=== PATIENT | female | born 1980 | race Two or more races ===

== ENCOUNTER 2025-02-10 17:39 | Emergency (ER) | payer OTHER ==
[~2025-02-10] VITALS: Ht 165.1 cm; Wt 68.0 kg
[2025-02-10 17:41] VITALS: BP 117/75; PULSE 68; RESP 20; TEMP 97.8; O2SAT 97
[2025-02-10] MEDS ORDERED: DOXY100C4 PO (18:37)
[2025-02-10] MEDS ORDERED: IBUP-1456 PO (18:39)
--- NOTE | 2025-02-10 18:39 | ED.PDOC ---
History of Present Illness(SKN HPI Comments 44-year-old female presents to the ED chief complaint sting raise sting to left ankle eight days ago. Patient complaining of increasing redness, swelling, and itchiness. Reports no other related symptoms denies fever chills nausea vomiting diarrhea chest pain, shortness of breath, difficulty breathing, a bdominal pain, or recent travel. Chief Complaint: Animal Bite Time Seen by MD: 18:02 History of Present Illness: Nurses Notes, Medications, Allergies Allergies: Coded Allergies: Sulfamethoxazole w/Trimethoprim (Verified Allergy, Unknown, 02/10/25) Home Meds Active Scripts Ibuprofen (Ibuprofen) 800 Mg Tab, 800 MG PO Q8HP PRN for 7 Days, #21 TAB Prov:GAELJU CRUSHER LOADER OPERATOR 02/10/25 Doxycycline Hyclate (Doxycycline Hyclate) 100 Mg Cap, 100 MG PO BID for 10 Days, #20 CAP Prov:GAELJU CRUSHER LOADER OPERATOR 02/10/25 Information Source: Patient Mode of Arrival: Ambulatory Past Medical History PAST MEDICAL HISTORY: Denies Surgical History: Denies all surgeries VASCULAR ULTRASOUND TECHNOLOGIST History: No Pertinent VASCULAR ULTRASOUND TECHNOLOGIST History Family History Family History: Reviewed,noncontributory to illness Social History Smoker: Non-Smoker Alcohol: Denies ETOH Use Drugs: Denies Drug Use All Other Systems: Reviewed and Negative (see hpi) Physical Exam General Appearance: No Apparent Distress, Normal HEENT: Pharynx Normal Neck: Full Range of Motion, Non-Tender Respiratory: Lungs Clear, No Respiratory Distress, Normal Breath Sounds Cardiovascular: No Murmur, Normal Peripheral Pulses, Regular Rate/Rhythm Breast Exam: Deferred Gastrointestinal: Non Tender, Soft Genitalia: Deferred Pelvic: Deferred Rectal: Deferred Extremities: Normal capillary refill, Normal range of motion, No pedal edema Musculoskeletal : Apperance: Normal Neurologic: Alert, No Motor Deficits, Normal Affect, Normal Mood, No Sensory Deficits Cerebellar Function: Normal Reflexes: Normal Skin: Dry, Normal Color, Warm, Wounds (Left lateral ankle malleolus aspect with noted puncture wound surrounding erythema and edema no noted drainage strength sensory motion intact positive pedal pulse no noted foreign body) Lymphatic: No Adenopathy Was a procedure done? Was a procedure done?: No Differential Diagnosis (INTG) Differential Diagnosis: Cellulitis, Contusion, Hematoma, Insect Envenomation, Puncture Wound Differential Diagnosis: Abscess X-Ray, Labs, Meds, VS Vital Signs Date Time Temp Pulse Resp B/P (MAP) Pulse Ox O2 Delivery O2 Flow Rate FiO2 02/10/25 17:41 97.8 68 20 117/75 97 97.8 Current Medications Medications (Trade) Dose Ordered Sig/Gilbert Route Start Time Stop Time Status Last Admin Ceftriaxone Sodium (Rocephin) 1,000 mg ONCE ONCE IM 02/10/25 18:45 02/10/25 18:46 DC 02/10/25 18:50 Ketorolac Tromethamine (Toradol Injection) 60 mg ONCE ONCE IM 02/10/25 18:45 02/10/25 18:46 DC 02/10/25 18:51 Diphtheria/ Tetanus/Acell Pertussis (Boostrix T-Dap) 0.5 ml ONCE ONCE IM 02/10/25 18:45 02/10/25 18:46 DC 02/10/25 18:50 X-Ray, Labs, Meds, VS Comment Likely infection. Patient given Rocephin 1 g IM Toradol 60 mg IM and tetanus IM reports improvement requesting discharge at this time. Script trial of doxy advised take medication as prescribed side effects discussed. Take the ibupro fen as prescribed for swelling and pain. Advised to follow up with her PCP or if unable to get in at urgent care or back here in the ER in two days for wound re-evaluation. ER return precautions given patient indicates understanding agrees with discharge plan of care. Time of 1ST Reevaluation: 18:02 Reevaluation 1ST: Unchanged Time of 2ND Reevaluation: 18:34 Reevaluation 2ND: Improved Patient Education/Counseling: Diagnosis, Treatment, Prognosis, Need For Follow Up Family Education/Counseling: Diagnosis, Treatment, Need For Follow Up SEPSIS Sepsis Screen Date sepsis recognized/suspect: Feb 10, 2025 Time Sepsis recognized/suspect: 1741 Recent Procedure: No On Antibiotic Therapy: No Respiratory Rate >20: No Heart Rate >90: No Temp<36 C (96.8 F) or >38.3 C: No SBP <90 or MAP <65 mmHG: No New Acute Mental Status Change: No Is the patient on CPAP, BIPAP,: No Vital Signs Date Time Temp Pulse Resp B/P (MAP) Pulse Ox O2 Delivery O2 Flow Rate FiO2 02/10/25 17:41 97.8 68 20 117/75 97 97.8 Medications Medications Dose Ordered Sig/Gilbert Route Start Time Stop Time Status Last Admin Dose Admin Ceftriaxone Sodium 1,000 mg ONCE ONCE IM 02/10/25 18:45 02/10/25 18:46 DC 02/10/25 18:50 Diphtheria/ Tetanus/Acell Pertussis 0.5 ml ONCE ONCE IM 02/10/25 18:45 02/10/25 18:46 DC 02/10/25 18:50 Ketorolac Tromethamine 60 mg ONCE ONCE IM 02/10/25 18:45 02/10/25 18:46 DC 02/10/25 18:51 Departure 1 Departure Time of Disposition: 18:34 Impression: Primary Impression: Struck by other marine mammals, initial encounter Disposition: HOME / SELF CARE / HOMELESS Condition: Stable e-Prescriptions Ibuprofen (Ibuprofen) 800 Mg Tab 800 MG PO Q8HP PRN for 7 Days, #21 TAB Prov: JU MAYO 02/10/25 Doxycycline Hyclate (Doxycycline Hyclate) 100 Mg Cap 100 MG PO BID for 10 Days, #20 CAP Prov: JU MAYO 02/10/25 Discharged With: Relative (Mother) Critical Care Note Critical Care Time?: No Stability Stability form required: No JU MAYO Feb 10, 2025 18:39
[2025-02-10] MEDS: cefTRIAXone SOD 1,000 MG VL IM ONE (18:50)
[2025-02-10] MEDS: TETANUS-DIPTH-ACEL PERTUSSIS 0.5ML SYR Tdap IM ONE (18:50)
[2025-02-10] MEDS: KETOROLAC TROMETH 60MG/2ML VIAL IM ONE (18:51)
== END 2025-02-10 18:55 | disposition home or self-care (01) ==
LOC: ER 17:39
DX: S91.032A Puncture wound without foreign body, left ankle, initial encounter (principal); Z79.899 Other long term (current) drug therapy; Z88.2 Allergy status to sulfonamides; Z88.1 Allergy status to other antibiotic agents; W56 Contact with nonvenomous marine animal; Y93.89 Activity, other specified; Y92.89 Other specified places as the place of occurrence of the external cause; Y99.8 Other external cause status
CPT/HCPCS: 90471; 90715; 96372; 99284; J0696; J1885